=== PATIENT | male | born 1955 | race Caucasian/White ===

== ENCOUNTER 2021-04-05 17:31 | Inpatient (IN) | payer OTHER ==
[~2021-04-05] VITALS: Ht 175.3 cm; Wt 72.8 kg
--- NOTE | ~2021-04-05 | HC ---
[facility] [place] [address] CONSULTATION Name: MARQUIS SHAW Room #: 362-P ADM IN M.R.#: [id number] Admission: 04/05/21 Attend Phys: Gregor Alvarado MD Discharge: Date of : 51 Report #: [id number] THIS REPORT FOR: cc: Pawan Silveira MD, Dennis R MD Al-Absi,Lex Blunt MD ~ DOC #: [id number] Lex Grissom MD REASON FOR CONSULTATION: Elevated creatinine. REASON FOR THE PRESENTATION: Disruptive behavior. HISTORY OF PRESENT ILLNESS: This was obtained from the medical chart. The patient has advanced severe dementia. He resides in a nursing facility. He has Alzheimer dementia. History of present illness is severely limited. The patient is minimally responsive. He was having some aggressive behavior in the facility and was sent to our hospital for further evaluation and management. He was found to have a creatinine value of 2.8 on arrival. We do not have any further labs on the patient. He is maintained on an angiotensin receptor jorge as an outpatient. He is also maintained on potassium and Lasix. PAST MEDICAL HISTORY: 1. Severe advanced Alzheimer dementia. 2. Parkinson disease. 3. Depression. 4. Hyperlipidemia. PAST SURGICAL HISTORY: Not able to obtain given the patient's current mental status. SOCIAL HISTORY: He is a resident of [facility]. FAMILY HISTORY: Not able to obtain given the patient's current mental status. ALLERGIES: None. REVIEW OF SYSTEMS: Unable to obtain given the patient's current mental status. MEDICATIONS: 1. Flomax. 2. Losartan. 3. Aspirin. 4. Gabapentin. 5. Carbidopa. 6. Potassium. 7. Lasix. [facility] [address] [place] [address] CONSULTATION Name: MARQUIS SHAW Room #: 362-P ADM IN M.R.#: [id number] Admission: 04/05/21 Attend Phys: Gregor Alvarado MD Discharge: Date of : 51 Report #: [id number] PHYSICAL EXAMINATION: GENERAL: He is disoriented. The blood pressure is 93/69. VITAL SIGNS: Temperature is 37.1, pulse rate 71, respiratory rate is 18. HEAD AND NECK: No jugular venous distention. CHEST: Decreased air entry bilaterally. CARDIOVASCULAR: No rubs detected. ABDOMEN: Soft, nontender. EXTREMITIES: Lower extremities, there is no edema. LABORATORY DATA: Sodium is 147, potassium is 5.3, BUN is 68, creatinine is 2.7. IMPRESSION AND PLAN: 1. Acute kidney injury associated with hyperkalemia due to severe dehydration. The patient was also taking some losartan and potassium supplementation, those were stopped. 2. Reformulate his IV fluid to address his hypernatremia. 3. Potassium issues are improving. 4. Monitor renal function. 5. Hold all of his blood pressure medications. 6. Follow daily electrolyte panel, renal function panel, urine output. 7. Basic workup for his acute kidney injury. 8. We will continue to follow during his hospital stay. Lex Grissom MD AIA/TISH/NANCY By: [id number] Lex Grissom MD /nt
[2021-04-05 17:32] VITALS: BP 121/104
[2021-04-05 18:33] LABS: ABSOLUTE NEUTROPHILS 7.7 thou/uL (1.4-8.2); BASOPHILS 0.7 % (0.0-2.0); HEMATOCRIT 41.3 % (42.0-52.0); HEMOGLOBIN 13.4 gm/dL (14.0-18.0); LYMPHOCYTES 15.6 % (24.0-44.0); MCH 31.9 pg (26.0-34.0); MCHC 32.4 g/dL (28.0-37.0); MCV 98.6 fL (80.0-100.0); PLATELET COUNT 248 thou/uL (150-400); POLYS 72.7 % (36.0-66.0); RBC 4.19 mil/uL (4.50-6.00); RDW 15.7 % (10.5-14.5); WBC 10.6 thou/uL (4.0-11.0)
[2021-04-05 18:42] LABS: URINE BILIRUBIN NEGATIVE (Negative); URINE BLOOD NEGATIVE (Negative); URINE CLARITY CLEAR; URINE COLOR YELLOW; URINE GLUCOSE-RANDOM* NEGATIVE (Negative); URINE KETONES NEGATIVE (Negative); URINE LEUKOCYTES-REFLEX NEGATIVE (Negative); URINE NITRITE-REFLEX NEGATIVE (Negative); URINE PROTEIN (DIPSTICK) NEGATIVE (Negative); URINE SPECIFIC GRAVITY 1.015 (1.005-1.035); URINE UROBILINOGEN 0.2 E.U./dl (0.2-1.0)
[2021-04-05 18:50] LABS: ALBUMIN 3.6 g/dL (3.4-5.0); CALCIUM 9.7 mg/dL (8.5-10.1); CREATININE 2.8 mg/dL (0.7-1.3); TOTAL BILIRUBIN 0.5 mg/dL (0.2-1.0); TOTAL PROTEIN 7.9 g/dL (6.4-8.2)
[2021-04-05 18:55] LABS: POTASSIUM 6.2 mmol/L (3.5-5.1)
[2021-04-05 21:13] VITALS: BP 121/104
[2021-04-05 22:22] VITALS: BP 98/52
[2021-04-05 22:47] VITALS: BP 126/92
[2021-04-05 23:55] VITALS: BP 111/90
--- NOTE | 2021-04-06 00:39 | NUR ---
PT ALERT , APHASIC. FOLLOWS SOME COMMANDS. WORDS ARE INCOMPREHENSIBLE. VSS AFEBRILE PRESENTLY. HRR. NSR ON MONITOR. DENIED PAIN. PICTURES TAKEN OF RIGHT AND LEFT HEEL BLISTERS. FEET ELEVATED. DID NOT PLACE SCDS DUE TO WOUNDS. REPOSITIONING Q 2 HRS. IV NS INFUSINF AT 100 ML/HR. RIGHT FA. CAREPLAN INITIATED.
[2021-04-06] MEDS ORDERED: ACETAMINOPHEN325 MG PO (01:42)
[2021-04-06] MEDS ORDERED: CHILDREN'S ASPI81 M1 PO (01:44)
[2021-04-06] MEDS ORDERED: BUSPIRONE HCL5 MG PO (01:46)
[2021-04-06] MEDS ORDERED: PEPCID20 MG PO (01:48)
[2021-04-06] MEDS ORDERED: FUROSEMIDE 40 M40 MG PO (01:49)
[2021-04-06] MEDS ORDERED: GABAPENTIN 100100 MG PO (01:50)
[2021-04-06] MEDS ORDERED: HYDROCODON-ACE1 EAC7 PO (01:53)
[2021-04-06] MEDS ORDERED: MELATONIN3 M1 PO (01:57)
[2021-04-06] MEDS ORDERED: REMERON SOLTAB45 MG PO (01:59)
[2021-04-06] MEDS ORDERED: SUPER THERAVIT1 EACH PO (02:00)
[2021-04-06] MEDS ORDERED: MIRALAX119 GM PO (02:01)
[2021-04-06] MEDS ORDERED: POTASSIUM CHLO20 ME2 PO (02:03)
[2021-04-06] MEDS ORDERED: MIRAPEX 0.250.25 M1 PO (02:04)
[2021-04-06] MEDS ORDERED: SENNA PLUS TAB1 EACH PO (02:06)
[2021-04-06 02:07] LABS: HEMOGLOBIN 12.4 gm/dL (14.0-18.0); MCH 31.8 pg (26.0-34.0); MCHC 32.6 g/dL (28.0-37.0); MCV 97.6 fL (80.0-100.0); RBC 3.89 mil/uL (4.50-6.00); RDW 15.4 % (10.5-14.5); WBC 9.1 thou/uL (4.0-11.0)
[2021-04-06] MEDS ORDERED: TAMSULOSIN HCL0.4 MG PO (02:07)
[2021-04-06] MEDS ORDERED: VITAMIN D325 MC1 PO (02:12)
[2021-04-06 02:15] LABS: CALCIUM 9.6 mg/dL (8.5-10.1); CREATININE 2.7 mg/dL (0.7-1.3); MAGNESIUM 2.7 mg/dL (1.8-2.4); POTASSIUM 5.3 mmol/L (3.5-5.1)
[2021-04-06] MEDS ORDERED: TRIAMCINOLONE A80 G2 TOP (02:18)
[2021-04-06] MEDS ORDERED: CONSTULOSE10 GM/152 PO (02:20)
[2021-04-06] MEDS ORDERED: COZAAR100 MG PO (02:21)
[2021-04-06] MEDS ORDERED: POTASSIUM20 PO (02:23)
[2021-04-06] MEDS ORDERED: CARBIDOPA-LEVO1 EAC9 PO (02:26)
[2021-04-06 03:16] VITALS: BP 93/69
--- NOTE | 2021-04-06 04:54 | NUR ---
PT ADMITTED FROM ER FOR HYERKALEMIA, BETTY AND AGGRESSION. SO FAR TONIGHT PT HAS BEEN RESTING QUIETLY. NO C/O PAIN. NO AGGRESSION NOTED. K DOWN TO 5.3 NOW. 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 NS AT 100 INFUSING RIGHT FA. RIGHT AND LEFT HEEL BLISTERS FLOATED ON PILLOWS UNTIL FOAM BOOTS AVAILABLE. REPOSITIONING PT Q 2 HRS.
[2021-04-06 07:33] VITALS: BP 111/64
[2021-04-06 07:53] LABS: CALCIUM 8.8 mg/dL (8.5-10.1); CREATININE 2.6 mg/dL (0.7-1.3); POTASSIUM 5.4 mmol/L (3.5-5.1)
[2021-04-06 11:22] VITALS: BP 120/66
[2021-04-06 16:18] VITALS: BP 124/78
--- NOTE | 2021-04-06 18:22 | NUR ---
RESTED IN BED THROUGH THE DAY. HE IS MUCH AWAKE TODAY. MAKES DEMANDS VERBALLY. PLEASANT WITH CARE. INCONT OF BOWEL/BLADDER.
[2021-04-06 19:29] VITALS: BP 146/75
[2021-04-07 04:26] VITALS: BP 141/85
[2021-04-07 05:52] LABS: ALBUMIN 2.7 g/dL (3.4-5.0); CALCIUM 8.6 mg/dL (8.5-10.1); CREATININE 1.6 mg/dL (0.7-1.3); PHOSPHORUS 2.7 mg/dL (2.6-4.7); POTASSIUM 4.2 mmol/L (3.5-5.1)
--- NOTE | 2021-04-07 06:27 | NUR ---
PT ALERT. APHASIC. SPEECH IS MORE CLEAR TONIGHT. FOLLOWS COMMANDS. NO C/O PAIN. HEELS WRAPPED AND IN PREVALON BOOTS. MOISTURE BARRIER TO BUTTOCKS. INC OF URINE IN LG AMTS. IVFS INFUSING R FA. BED DOWN. CALL LIGHT IN REACH. BED ALARM IS ON. NO S/S DISTRESS TONIGHT.
--- NOTE | 2021-04-07 07:21 | EKG ---
[address] [place] [address] ELECTROCARDIOGRAM REPORT Name: MARQUIS SHAW Room #: 362-P ADM IN M.R.#: [id number] Admission: 04/05/21 Attend Phys: Gregor Alvarado MD Discharge: Date of : 51 Report #: [id number] [facility] ED Test Date: 2021-04-05 Test Time: 17:52:04 Pat Name: MARQUIS SHAW Department: Room: 362 Gender: M X Ray Physician: mildred : 1955 Requested By: Bettie Mills Order Number: [id number] MD: Alban Olson Measurements Intervals Platte Rate: 70 P: 13 ID: [id number] QRS: -30 QRSD: 106 T: 15 QT: 411 QTc: 444 Interpretive Statements Sinus rhythm Left ventricular hypertrophy Baseline wander in lead(s) V3 No previous ECG available for comparison Electronically Signed On 04-07-2021 7:21:28 CDT by Alban Olson [email or web address] <ELECTRONICALLY SIGNED> By: Alban Olson MD, [facility] 04/07/21 07 175 [id number] Alban Olson MD, FACC /EPI
[2021-04-07 07:40] VITALS: BP 120/71
[2021-04-07 11:26] VITALS: BP 123/71
--- NOTE | 2021-04-07 13:29 | NUR ---
WOUND CONSULT; THE PATIENT IS REFUSING TO BE TURNED. ASSESSMENT WAS FROM PICTURES WHICH WERE CLEAR. NO VISUAL S/S OF INFECTION THE SACRUM IS ESCORIATED. THE LEFT BUTTOCK IS 2 X 1 X 0.2. THE LEFT HIP IS 1 X 1 X 0.1 RECOMMENDATIONS; ZGUARD TO ALL WOUNDS BID/PRN.
--- NOTE | 2021-04-07 13:36 | NUR ---
WOUND CONSULT; BILATERAL DTI'S WERE IDENTIFIED. UNSTABLE BLISTERS. MINIMAL ERYTHEMA. NO ODOR. BILISTERS TO BILATERAL HEELS APPROX 5 X 5 X 0.1. CURRENTLY HAS PRAFO BOOTS ON. RECOMMENDATION; XEROFORM/BORDER FOAM, CHANGE M/W/F PRN. DISCUSSED WITH SANTOS
--- NOTE | 2021-04-07 14:07 | NUR ---
CM FAXED ORDERS TO [facility] [phone]. [facility] W/ ASST BERNADETTE MATHIS RE RTRN. BERNADETTE AND PT BEDSIDE RN AGREEABLE TO 1600 D/C TIME. CM ARRANGED WC TRANSPORTATION THROUGH [facility]. CM LFT FOR PT CONTACT, SHAJI GILL. US ASKED TO MAKE CHART COPY.
== END 2021-04-07 17:45 | DRG 682 ==
LOC: ER 17:31 → EROBS 20:05 → 3W 20:05
PROVIDERS: Hospitalist; Nurse Practitioner Family; Physician Assistant; ADMIT Hospitalist; ATTEND Hospitalist
DX: N17.9 Acute kidney failure, unspecified (principal); G93.41 Metabolic encephalopathy; E87.0 Hyperosmolality and hypernatremia; F02.81 Dementia in other diseases classified elsewhere, unspecified severity, with behavioral disturbance; G30.9 Alzheimer's disease, unspecified; J44.9 Chronic obstructive pulmonary disease, unspecified; F41.1 Generalized anxiety disorder; N40.0 Benign prostatic hyperplasia without lower urinary tract symptoms; E78.5 Hyperlipidemia, unspecified; K21.9 Gastro-esophageal reflux disease without esophagitis; G20 Parkinson's disease; E87.5 Hyperkalemia; F32.9 Major depressive disorder, single episode, unspecified; E86.0 Dehydration; G47.00 Insomnia, unspecified; K59.00 Constipation, unspecified; Z20.822 Contact with and (suspected) exposure to COVID-19; Z86.16 Personal history of COVID-19
CPT/HCPCS: 10879